=== PATIENT | male | born 1945 | race Caucasian/White ===

== ENCOUNTER 2024-03-04 10:16 | Outpatient (CLI) | payer MEDICARE, SELFPAY ==
--- NOTE | 2024-03-04 10:15 | RT.EKG_ITS ---
APPROVED REPORT Exam: Resting ECG Reason for Exam: assess rhythm Patient Location: O HR:68 bpm ECG Measurements Heart Rate 68 AXIS VT 179 P -26 QRSd 104 QRS -36 QT 428 T 41 QTc 456 Conclusion Sinus rhythm...normal P axis, V-rate 50- 99 Left axis deviation...QRS axis (-30,-90) Abnormal R-wave progression, late transition...QRS area<0 in V5/V6
== END 2024-03-04 10:17 | disposition home or self-care (01) ==
LOC: DI.KIM 10:17
PROVIDERS: PCP Nurse Practitioner Adult Health; Visit Provider Nurse Practitioner Adult Health
DX: I49.9 Cardiac arrhythmia, unspecified (principal); R94.31 Abnormal electrocardiogram [ECG] [EKG]
CPT/HCPCS: 93010